=== PATIENT | female | born 1985 | race Two or more races ===

== ENCOUNTER 2016-11-21 14:53 | Emergency (ER) | payer OTHER ==
[2016-11-21 15:01] VITALS: BP 108/68; PULSE 81; TEMP 97.8; BMI 24.2
--- NOTE | 2016-11-21 16:44 | PDOC ---
History of Present Illness - General History Source: Patient Exam Limitations: No Limitations - History of Present Illness Initial Comments: 11/21/16 16:47 The patient is a 30 year old female, with a significant past medical history of hypothyroidism, who presents to the emergency department with vaginal bleeding for the past 5 days. She reports that she is having her period now but it has been much heavier than usual, going through multiple pads daily. She denies any kind of pain. She denies taking control. She reports that she has her tubes tied. She does note that usually her period is 2 weeks on and 2 weeks off but never to this intensity. The patient denies chest pain, shortness of breath, headache and dizziness. Denies fever, chills, nausea, vomit, diarrhea and constipation. Denies dysuria, frequency, urgency and hematuria. Allergies: None Past surgical history: Tubal ligation Social history: No alcohol, tobacco or drug use reported <Pancho Guan - Last Filed: 11/21/16 20:06> - General History Source: Patient Exam Limitations: No Limitations <Eddie Cobos - Last Filed: 11/21/16 20:16> - General Chief Complaint: Vaginal Bleeding Stated Complaint: VAG BLEEDING, DIZZINESS, ABD CRAMPING Time Seen by Provider: 11/21/16 16:08 Past History <Pancho Guan - Last Filed: 11/21/16 20:06> - Past Medical History Anemia: No Asthma: No Cancer: No Cardiac Disorders: No CVA: No COPD: No CHF: No Dementia: No Diabetes: No GI Disorders: No Disorders: No HTN: No Hypercholesterolemia: No Liver Disease: No Seizures: No Thyroid Disease: Yes - Reproductive History (#): 4 Para: 3 - Immunization History Immunization Up to Date: Yes - Psycho/Social/Smoking Cessation Hx Anxiety: No Suicidal Ideation: No Smoking Status: No Smoking History: Never smoked Have you smoked in the past 12 months: Yes Number of Cigarettes Smoked Daily: 0 'Breaking Loose' booklet given: 12/17/13 Hx Alcohol Use: Yes (SOCIAL) Drug/Substance Use Hx: No Substance Use Type: None Hx Substance Use Treatment: No <Eddie Cobos - Last Filed: 11/21/16 20:16> - Past Medical History Allergies/Adverse Reactions: Allergies Allergy/AdvReac Type Severity Reaction Status Date / Time shellfish derived Allergy Severe Hives Verified 11/21/16 15:01 Home Medications: Ambulatory Orders Cephalexin [Keflex] 500 mg PO BID #14 capsule 11/21/16 Ethinyl Estradiol/Drospirenone [Ocella 3 mg-0.03 mg Tablet] 1 each PO DAILY #30 tablet 11/21/16 Review of Systems - Review of Systems Able to Perform ROS?: Yes Comments:: 11/21/16 16:47 GENERAL/CONSTITUTIONAL: No fever or chills. No weakness. HEAD, EYES, EARS, NOSE AND THROAT: No change in vision. No ear pain or discharge. No sore throat. CARDIOVASCULAR: No chest pain or shortness of breath RESPIRATORY: No cough, wheezing, or hemoptysis. GASTROINTESTINAL: No nausea, vomiting, diarrhea or constipation. GENITOURINARY: +Vaginal bleeding. No dysuria, frequency, or change in urination. MUSCULOSKELETAL: No joint or muscle swelling or pain. No neck or back pain. SKIN: No rash NEUROLOGIC: No headache, vertigo, loss of consciousness, or change in strength/ sensation. ENDOCRINE: No increased thirst. No abnormal weight change HEMATOLOGIC/LYMPHATIC: No anemia, easy bleeding, or history of blood clots. ALLERGIC/IMMUNOLOGIC: No hives or skin allergy. <Pancho Guan - Last Filed: 11/21/16 20:06> *Physical Exam - Vital Signs Last Vital Signs Temp Pulse Resp BP Pulse Ox 97.8 F 81 20 108/68 98 11/21/16 14:59 11/21/16 14:59 11/21/16 14:59 11/21/16 14:59 11/21/16 14:59 - Physical Exam Comments: 11/21/16 16:47 GENERAL: Awake, alert, and fully oriented, in no acute distress HEAD: No signs of trauma, normocephalic, atraumatic EYES: PERRLA, EOMI, sclera anicteric, conjunctiva clear ENT: Auricles normal inspection, hearing grossly normal, nares patent, oropharynx clear without exudates. Moist mucosa NECK: Normal ROM, supple, no lymphadenopathy, JVD, or masses LUNGS: No distress, speaks full sentences, clear to auscultation bilaterally HEART: Regular rate and rhythm, normal S1 and S2, no murmurs, rubs or gallops, peripheral pulses normal and equal bilaterally. ABDOMEN: Soft, nontender, normoactive bowel sounds. No guarding, no rebound. No masses EXTREMITIES: Normal inspection, Normal range of motion, no edema. No clubbing or cyanosis. NEUROLOGICAL: Cranial nerves II through XII grossly intact. Normal speech, normal gait, no focal sensorimotor deficits SKIN: Warm, Dry, normal turgor, no rashes or lesions noted. PELVIC EXAM: +Blood in vaginal vault. No CMT or adnexal tenderness. Closed Ox. <Pancho Guan - Last Filed: 11/21/16 20:06> - Vital Signs Last Vital Signs Temp Pulse Resp BP Pulse Ox 97.8 F 81 20 108/68 98 11/21/16 14:59 11/21/16 14:59 11/21/16 14:59 11/21/16 14:59 11/21/16 14:59 <Eddie Cobos - Last Filed: 11/21/16 20:16> ED Treatment Course - LABORATORY CBC & Chemistry Diagram: 11/21/16 17:10 11/21/16 17:15 - RADIOLOGY Radiograph Interpretation: 11/21/16 18:32 Transvaginal ultrasound Reviewed by: Dr. Yuan Zapata Impression: No definite sonographic abnormality is identified. <Pancho Guan - Last Filed: 11/21/16 20:06> - LABORATORY CBC & Chemistry Diagram: 11/21/16 17:10 11/21/16 17:15 - RADIOLOGY Radiology Studies Ordered: Category Date Time Status TRANSVAGINAL ULTRASOUND US [US] Stat Ultrasound 11/21/16 16:22 Ordered <Eddie Cobos - Last Filed: 11/21/16 20:16> Medical Decision Making - Medical Decision Making 11/21/16 20:06 Dr. Lock was called regarding the patient at 7:38pm, 7:56pm. Dr. Lock was consulted regarding the patient at 8:06pm [phone] <Pancho Guan - Last Filed: 11/21/16 20:06> - Medical Decision Making 11/21/16 16:42 A portion of this note was written by my scribe, under my supervision. Vital Signs Temp Pulse Resp BP Pulse Ox 97.8 F 81 20 108/68 98 11/21/16 14:59 11/21/16 14:59 11/21/16 14:59 11/21/16 14:59 11/21/16 14:59 30 year old female with no past medical history, s/p tubal ligation, hx of heavy periods, presents with heavy menses. The patient reports that she is typically regular and has her periods each month. however, the patient has 2 weeks of heavy bleeding. 5 days ago, started to develop vaginal bleeding typical of her menses, but recently noted that this was particularly heavier than usual. Reports uterine cramping. Does not think she is . never went to an mosaic tile maker. Reports feeling somewhat lightheaded but denies other symptoms. Will r/o anemia 2/2 bleeding. Transfuse PRN. Will obtain a test. If test negative, will consider dysfunctional uterine bleeding or degenerating fibroids. Either way, patient should get labs and transvaginal ultrasound. 11/21/16 20:08 CBC, BMP 11/21/16 17:10 11/21/16 17:15 CMP Sodium 140 mmol/L (136-145) 11/21/16 17:15 Potassium 3.7 mmol/L (3.5-5.1) 11/21/16 17:15 Chloride 106 mmol/L (98-107) 11/21/16 17:15 Carbon Dioxide 29 mmol/L (21-32) 11/21/16 17:15 Anion Gap 5 (8-16) L 11/21/16 17:15 BUN 13 mg/dL (7-18) 11/21/16 17:15 Creatinine 0.6 mg/dL (0.55-1.02) D 11/21/16 17:15 Creat Clearance w eGFR > 60 (>60) 11/21/16 17:15 Random Glucose 86 mg/dL (74-106) 11/21/16 17:15 Calcium 8.5 mg/dL (8.5-10.1) 11/21/16 17:15 Total Bilirubin 0.3 mg/dL (0.2-1.0) 11/21/16 17:15 AST 42 U/L (15-37) H D 11/21/16 17:15 ALT 69 U/L (12-78) 11/21/16 17:15 Alkaline Phosphatase 201 U/L (45-117) H D 11/21/16 17:15 Total Protein 7.5 g/dl (6.4-8.2) 11/21/16 17:15 Albumin 3.9 g/dl (3.4-5.0) 11/21/16 17:15 Urine Test Results Urine Color Dk. red 11/21/16 17:33 Urine Appearance Clear 11/21/16 17:33 Urine pH 6.5 (5.0-8.0) 11/21/16 17:33 Ur Specific [place] 1.015 (1.001-1.035) 11/21/16 17:33 Urine Protein 2+ (NEGATIVE) H 11/21/16 17:33 Urine Glucose (UA) Negative (NEGATIVE) 11/21/16 17:33 Urine Ketones Trace (NEGATIVE) H 11/21/16 17:33 Urine Blood 3+ (NEGATIVE) H 11/21/16 17:33 Urine Nitrite Positive (NEGATIVE) 11/21/16 17:33 Urine Bilirubin Negative (NEGATIVE) 11/21/16 17:33 Ur Leukocyte Esterase 1+ (NEGATIVE) H D 11/21/16 17:33 Urine RBC Many /hpf (0-3) 11/21/16 17:33 Urine WBC 2 /hpf (3-5) 11/21/16 17:33 Urine Bacteria Rare /hpf (NONE SEEN) 11/21/16 17:33 Ultrasound reviewed. Demonstrate no acute findings. Urine is positive for nitrites and leukoesterase concerning for urinary tract infection. Willis aquatic habitat biologist reviewed. In Keflex was ordered. I suspect that the patient has dysfunctional uterine bleeding as this has been a long-standing issue with the patient. She already has tubal ligation. I discussed the case with review coordinator and elementary assistant principal injection molding machine setter Dr. Lock. He agrees with plan to initiate oral contraceptive pills and suggests Ocella. We'll give her 3 month supply that the patient follow-up with her review coordinator and elementary assistant principal. Patient verbalized understanding agrees with plan. I discussed the physical exam findings, ancillary test results and final diagnoses with the patient. I answered all of the patient's questions. The patient was satisfied with the care received and felt comfortable with the discharge plan and treatment plan. The patient will call their primary care physician within 24 hours to arrange follow-up and will return to the Emergency Department with any new, persistant or worsening symptoms. <Eddie Cobos - Last Filed: 11/21/16 20:16> *DC/Admit/Observation/Transfer - Attestations Scribe Attestion: 11/21/16 16:48 Documentation prepared by Pancho Guan, acting as medical librarian for Eddie Cobos MD. <Pancho Guan - Last Filed: 11/21/16 20:06> - Discharge Dispostion Admit: No <Eddie Cobos - Last Filed: 11/21/16 20:16> Diagnosis at time of Disposition: Dysfunctional uterine bleeding UTI (urinary tract infection) Qualifiers: Urinary tract infection type: site unspecified Hematuria presence: without hematuria Qualified Code(s): N39.0 - Urinary tract infection, site not specified - Discharge Dispostion Disposition: HOME Condition at time of disposition: Improved - Prescriptions Prescriptions: Cephalexin [Keflex] 500 mg PO BID #14 capsule Ethinyl Estradiol/Drospirenone [Ocella 3 mg-0.03 mg Tablet] 1 each PO DAILY #30 tablet - Referrals Referrals: Yuan Izquierdo MD [Primary Care Provider] - Dejuan Centeno MD [Staff Physician] - Burke Lock MD [Staff Physician] - - Patient Instructions Printed Discharge Instructions: DI for Urinary Tract Infection (UTI), DI for Abnormal Uterine Bleeding Additional Instructions: You have a copy of your results. Please start taking the control pills. Take the keflex (500 mg) every 12 hours for the next week. Follow up with your primary care physician and mosaic tile maker doctor. If you hvae uncontrollable bleeding, please return to the ER for further evaluation. Print Language: MOHAWK - Post Discharge Activity Work/School Note: Back to Work
[2016-11-21 17:23] LABS: BASOPHIL 0.5 % (0-2.0); EOSINOPHIL 0.8 % (0-4.5); MCH 26.9 pg (25.7-33.7); MCHC 33.2 g/dl (32.0-36.0); MEAN PLT VOLUME 9.6 fl (7.5-11.1); NEUTROPHILS 63.3 % (42.8-82.8); PLATELET COUNT 199 K/MM3 (134-434); RDW 15.1 % (11.6-15.6); WHITE BLOOD COUNT 8.9 K/mm3 (4.0-10.0)
[2016-11-21 17:33] LABS: INR 1.03 (0.82-1.09); PROTHROMBIN TIME (PATIENT) 11.3 SEC (9.98-11.88)
[2016-11-21 17:36] LABS: ACTIVATED PTT 29.1 SECONDS (26.9-34.4)
[2016-11-21 18:00] LABS: ALBUMIN 3.9 g/dl (3.4-5.0); ALK PHOS 201 U/L (45-117); ANION GAP 5 (8-16); BILIRUBIN,TOTAL 0.3 mg/dL (0.2-1.0); CALCIUM 8.5 mg/dL (8.5-10.1); CO2 29 mmol/L (21-32); CREATININE 0.6 mg/dL (0.55-1.02); GLUCOSE,RANDOM 86 mg/dL (74-106); SGOT/AST 42 U/L (15-37); SGPT/ALT 69 U/L (12-78); TOT PROT 7.5 g/dl (6.4-8.2)
[2016-11-21 19:07] LABS: PH,URINE 6.5 (5.0-8.0); URINE APPEARANCE CLEAR; URINE BILIRUBIN NEGATIVE (NEGATIVE); URINE COLOR DK. RED; URINE GLUCOSE (UA) NEGATIVE (NEGATIVE); URINE KETONE TRACE (NEGATIVE); URINE UROBILINOGEN 1.0 E.U/dl E.U./dl (0.2-1.0)
[2016-11-21 19:10] LABS: URINE BLOOD 3+ (NEGATIVE); URINE LEUK ESTERASE 1+ (NEGATIVE); URINE NITRITE POSITIVE (NEGATIVE); URINE PROTEIN 2+ (NEGATIVE)
[2016-11-21 19:14] LABS: URINE RBC MANY /hpf (0-3)
[2016-11-21 19:15] LABS: URINE BACTERIA RARE /hpf (NONE SEEN); URINE WBC 2 /hpf (3-5)
[2016-11-21] MEDS ORDERED: CEPHALEXIN MONOHYDRATE 500 MG CAPSULE (UD) PO ONE (19:34)
[2016-11-21] MEDS ORDERED: CEPHALEXIN MONOHYDRATE 250 MG CAPSULE (FP) ONE (19:50)
== END 2016-11-21 20:39 | disposition home or self-care (01) ==
LOC: JER 14:53
DX: N93.8 Other specified abnormal uterine and vaginal bleeding (principal); N39.0 Urinary tract infection, site not specified; E03.9 Hypothyroidism, unspecified; N93.9 Abnormal uterine and vaginal bleeding, unspecified
CPT/HCPCS: 36415; 76830-TC; 80053; 81003; 81015; 84703; 85025; 85610; 85730; 86850; 86900; 86901; 87086; 87186; 99282-25

== ENCOUNTER 2017-02-24 16:02 | Emergency (ER) | payer OTHER ==
[2017-02-24 16:13] VITALS: BP 121/74; PULSE 80; TEMP 98; BMI 24.2
[2017-02-24] MEDS ORDERED: DEXAMETHASONE SOD PHOSPHATE 10 MG/1 ML VIAL IM ONE (16:53)
[2017-02-24] MEDS ORDERED: diphenhydrAMINE HCL 25 MG CAPSULE (FP) PO ONE ×2 (16:53→16:58)
[2017-02-24] MEDS ORDERED: DEXAMETHASONE SOD PHOSPHATE 10 MG/1 ML VIAL ONE (16:58)
--- NOTE | 2017-02-24 16:59 | PDOC ---
[id number]: ALLERGIC REACTION/RASH Time Seen by Provider: 02/24/17 16:51 History Source: Patient Exam Limitations: No Limitations - History of Present Illness Initial Comments: 02/24/17 19:37 31 yr female with hives, itchy rash all over since last night at 8pm after eating tunafish. Pt states she has had no previous reactions but the food was prepared out of her home. 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 Past History - Past Medical History Allergies/Adverse Reactions: Allergies Allergy/AdvReac Type Severity Reaction Status Date / Time shellfish derived Allergy Severe Hives Verified 02/24/17 16:10 Home Medications: Ambulatory Orders Prednisone [Deltasone -] 40 mg PO DAILY #8 tablet 02/24/17 Anemia: No Asthma: No Cancer: No Cardiac Disorders: No CVA: No COPD: No CHF: No Dementia: No Diabetes: No GI Disorders: No Disorders: No HTN: No Hypercholesterolemia: No Liver Disease: No Seizures: No Thyroid Disease: Yes - Reproductive History (#): 4 Para: 3 - Immunization History Immunization Up to Date: Yes - Psycho/Social/Smoking Cessation Hx Anxiety: No Suicidal Ideation: No Smoking Status: No Smoking History: Never smoked Have you smoked in the past 12 months: Yes Number of Cigarettes Smoked Daily: 0 Information on smoking cessation initiated: No 'Breaking Loose' booklet given: 12/17/13 Hx Alcohol Use: No Drug/Substance Use Hx: No Substance Use Type: None Hx Substance Use Treatment: No Review of Systems - Review of Systems Able to Perform ROS?: Yes Is the patient limited Hungarian proficient: No Constitutional: No: Symptoms Reported HEENTM: No: Symptoms Reported Respiratory: No: Symptoms reported Cardiac (ROS): No: Symptoms Reported ABD/GI: No: Symptoms Reported : No: Symptoms Reported Musculoskeletal: No: Symptoms Reported Integumentary: Yes: Symptoms Reported, See HPI *Physical Exam - Vital Signs Last Vital Signs Temp Pulse Resp BP Pulse Ox 98 F 80 20 121/74 100 02/24/17 16:11 02/24/17 16:11 02/24/17 16:11 02/24/17 16:11 02/24/17 16:11 - Physical Exam General Appearance: Yes: Nourished, Appropriately Dressed HEENT: positive: EOMI, RANJEET, Normal ENT Inspection, TMs Normal, Pharynx Normal Neck: positive: Supple Respiratory/Chest: positive: Lungs Clear, Normal Breath Sounds Cardiovascular: positive: Regular Rhythm, Regular Rate Extremity: positive: Normal Capillary Refill, Normal Inspection, Normal Range of Motion Integumentary: positive: Hives, Rash Neurologic: positive: Fully Oriented, Alert, Normal Mood/Affect, Normal Response , Motor Strength 5/5 Medical Decision Making - Medical Decision Making 02/24/17 19:38 cc: generalised hives, red itchy rash arms, legs chest will give decadron and benadryl strict follow up with ENT vitals stable no resp distress or dif speaking neg nvd *DC/Admit/Observation/Transfer Diagnosis at time of Disposition: Localized hives Allergic reaction Qualifiers: Encounter type: initial encounter Qualified Code(s): T78.40XA - Allergy, unspecified, initial encounter - Discharge Dispostion Disposition: HOME Condition at time of disposition: Good - Prescriptions Prescriptions: Prednisone [Deltasone -] 40 mg PO DAILY #8 tablet - Referrals Referrals: López Maya MD [Primary Care Provider] - Willis Dong MD [Staff Physician] - - Patient Instructions Additional Instructions: take benadryl 50mg every 6-8hrs as needed for itching and hives benadryl can make you sleepy DO NOT DRIVE, OPERATE MACHINERY OR DRINK ALCOHOL take the prednisone as directed start tomorrow take a non drowsy antihistamine such as Claritin or Zyrtec NON DROWSY during the day and take benadryl at night time Return if any worsening symptoms cool showers to bathe follow with the morning show producer listed below for follow up if not getting any better
== END 2017-02-24 17:01 | disposition home or self-care (01) ==
LOC: JERFT 16:02
DX: L50.0 Allergic urticaria (principal); T78.1XXA Other adverse food reactions, not elsewhere classified, initial encounter; X58.XXXA Exposure to other specified factors, initial encounter
CPT/HCPCS: 99281-25

== ENCOUNTER 2017-04-14 20:55 | Emergency (ER) | payer OTHER ==
[2017-04-14 21:01] VITALS: BP 120/77; PULSE 76; TEMP 98.1; BMI 24.2
--- NOTE | 2017-04-14 22:01 | PDOC ---
History of Present Illness - General History Source: Patient Exam Limitations: No Limitations - History of Present Illness Initial Comments: 04/14/17 22:19 The patient is a 31 year old female, with significant past medical history of migraines, hypothyroidism, who presents today with a headache, nausea, 1 episode of vomiting x 2 days. The patient explains that she was in the sun all day yesterday before the headache started. She states that this migraine is similar to the migraines she has experienced in the past; however, she took Elavil, magnesium, and Imitrex with mild relief. Denies fever, chills. Denies visual changes. Allergies: none reported Surgical Hx: tubal ligation Social Hx: No tobacco use. Occasional alcohol use. PCP: Dr. Maya Neurologist: Dr. Lawrence <Brne Calderon - Last Filed: 04/14/17 22:40> <Lynda Edmondson - Last Filed: 04/16/17 16:54> - General Chief Complaint: Migraine Headache Stated Complaint: HEADACHE Time Seen by Provider: 04/14/17 21:13 Past History <Bren Calderon - Last Filed: 04/14/17 22:40> - Past Medical History Anemia: No Asthma: No Cancer: No Cardiac Disorders: No CVA: No COPD: No CHF: No Dementia: No Diabetes: No GI Disorders: No Disorders: No HTN: No Hypercholesterolemia: No Liver Disease: No Seizures: No Thyroid Disease: Yes - Reproductive History (#): 4 Para: 3 - Immunization History Immunization Up to Date: Yes - Psycho/Social/Smoking Cessation Hx Anxiety: No Suicidal Ideation: No Smoking Status: No Smoking History: Never smoked Have you smoked in the past 12 months: Yes Number of Cigarettes Smoked Daily: 0 'Breaking Loose' booklet given: 12/17/13 Hx Alcohol Use: No Drug/Substance Use Hx: No Substance Use Type: None Hx Substance Use Treatment: No <Lynda Edmondson - Last Filed: 04/16/17 16:54> - Past Medical History Allergies/Adverse Reactions: Allergies Allergy/AdvReac Type Severity Reaction Status Date / Time shellfish derived Allergy Severe Hives Verified 04/14/17 20:58 Home Medications: Ambulatory Orders Amitriptyline HCl [Elavil -] 50 mg PO DAILY 04/14/17 Magnesium Oxide [Magnesium] 250 mg PO ASDIR 04/14/17 Sumatriptan Succinate [Imitrex] 25 mg PO ASDIR PRN 04/14/17 Review of Systems - Review of Systems Able to Perform ROS?: Yes Comments:: 04/14/17 22:19 CONSTITUTIONAL: Absent: fever, no chills, no fatigue EYES: Absent: visual changes ENT: Absent: ear pain, no sore throat CARDIOVASCULAR: Absent: chest pain, no palpitations RESPIRATORY: Absent: cough, no SOB GI: Present: nausea, vomiting Absent: abdominal pain, no constipation, no diarrhea GENITOURINARY: Absent: dysuria, no frequency, no hematuria MUSCULOSKELETAL: Absent: back pain, no arthralgia, no myalgia SKIN: Absent: rash NEURO: Present: headache <Bren Calderon - Last Filed: 04/14/17 22:40> *Physical Exam - Vital Signs Last Vital Signs Temp Pulse Resp BP Pulse Ox 98.1 F 76 18 120/77 97 04/14/17 20:58 04/14/17 20:58 04/14/17 20:58 04/14/17 20:58 04/14/17 20:58 - Physical Exam Comments: 04/14/17 22:20 GENERAL: Well-appearing, well-nourished. No apparent distress. HEENT: Normocephalic, atraumatic. PERRL, EOM intact. CARDIOVASCULAR: Normal S1, S2. Regular rate and rhythm. PULMONARY: Clear to auscultation bilaterally. ABDOMEN: Soft, non-distended, non-tender. EXTREMITIES: Normal ROM in all four extremities. No gross deformities. SKIN: Warm, dry. No rash NEUROLOGICAL: No focal neurological deficits. <Bren Calderon - Last Filed: 04/14/17 22:40> - Vital Signs Last Vital Signs Temp Pulse Resp BP Pulse Ox 98.1 F 76 18 120/77 97 04/14/17 20:58 04/14/17 20:58 04/14/17 20:58 04/14/17 20:58 04/14/17 20:58 <Lynda Edmondson - Last Filed: 04/16/17 16:54> ED Treatment Course - LABORATORY CBC & Chemistry Diagram: 04/14/17 22:20 04/14/17 22:20 <Bren Calderon - Last Filed: 04/14/17 22:40> - LABORATORY CBC & Chemistry Diagram: 04/14/17 22:20 04/14/17 22:20 <Lynad Edmondson - Last Filed: 04/16/17 16:54> Medical Decision Making - Medical Decision Making 04/16/17 16:52 pt has migraine history and sees Dr Lawrence . She has no focal neuro deficits, she received reglan IV and her symptoms resolved and she requested to go home imp- migraines <Lynda Edmondson - Last Filed: 04/16/17 16:54> *DC/Admit/Observation/Transfer - Attestations Scribe Attestion: 04/14/17 22:20 Documentation prepared by MARTINA Joe, acting as product manager medical device for Lynda Edmondson MD. <Bren Calderon - Last Filed: 04/14/17 22:40> <Lynda Edmondson - Last Filed: 04/16/17 16:54> Diagnosis at time of Disposition: Migraine Qualifiers: Migraine type: unspecified Status migrainosus presence: without status migrainosus Intractability: not intractable Qualified Code(s): G43.909 - Migraine, unspecified, not intractable, without status migrainosus - Discharge Dispostion Disposition: HOME Condition at time of disposition: Stable - Referrals Referrals: López Maya MD [Primary Care Provider] - Juan Luis Lawrence MD [Staff Physician] - - Patient Instructions Printed Discharge Instructions: DI for Migraine Additional Instructions: please take your migraine medication and if you have persistent symptoms see your neurologist
[2017-04-14] MEDS ORDERED: SODIUM CHLORIDE 1,000 ML IV STA (22:02)
[2017-04-14] MEDS ORDERED: METOCLOPRAMIDE HCL INJECTION 10 MG/2 ML VIAL IVPB ONE (22:02)
[2017-04-14] MEDS ORDERED: KETOROLAC TROMETHAMINE 30 MG/1 ML VIAL IVPUSH ONE (22:03)
[2017-04-14] MEDS ORDERED: METOCLOPRAMIDE HCL INJECTION 10 MG/2 ML VIAL ONE (22:15)
[2017-04-14] MEDS ORDERED: KETOROLAC TROMETHAMINE 30 MG/1 ML VIAL ONE (22:15)
[2017-04-14 22:38] LABS: BASOPHIL 0.5 % (0-2.0); EOSINOPHIL 1.6 % (0-4.5); MCH 26.3 pg (25.7-33.7); MCHC 31.8 g/dl (32.0-36.0); MEAN CELL VOLUME 82.7 fl (80-96); MEAN PLT VOLUME 9.1 fl (7.5-11.1); NEUTROPHILS 43.2 % (42.8-82.8); PLATELET COUNT 212 K/MM3 (134-434); WHITE BLOOD COUNT 6.9 K/mm3 (4.0-10.0)
[2017-04-14 23:03] LABS: ALBUMIN 3.8 g/dl (3.4-5.0); ANION GAP 9 (8-16); CALCIUM 8.6 mg/dL (8.5-10.1); CO2 27 mmol/L (21-32); COCKROFT - GAULT 110.4405; CREATININE 0.8 mg/dL (0.55-1.02); GLUCOSE,RANDOM 76 mg/dL (74-106); SGOT/AST 21 U/L (15-37); SGPT/ALT 36 U/L (12-78)
[2017-04-14 23:05] LABS: ALK PHOS 118 U/L (45-117); BILIRUBIN,TOTAL 0.4 mg/dL (0.2-1.0); TOT PROT 7.7 g/dl (6.4-8.2)
== END 2017-04-14 23:14 | disposition home or self-care (01) ==
LOC: JER 20:55
PROC: 3E0333Z Introduction of Anti-inflammatory into Peripheral Vein, Percutaneous Approach (ICD-10-PCS; principal; 2017-04-14)
PROC: 3E033GC Introduction of Other Therapeutic Substance into Peripheral Vein, Percutaneous Approach (ICD-10-PCS; 2017-04-14)
PROC: 3E0337Z Introduction of Electrolytic and Water Balance Substance into Peripheral Vein, Percutaneous Approach (ICD-10-PCS; 2017-04-14)
DX: G43.909 Migraine, unspecified, not intractable, without status migrainosus (principal); E03.9 Hypothyroidism, unspecified
CPT/HCPCS: 36415; 80053; 85025; 96361; 96374; 96375; 99282-25

== ENCOUNTER 2017-12-10 11:26 | Emergency (ER) | payer OTHER ==
[2017-12-10 11:48] VITALS: BP 115/73; PULSE 72; TEMP 98.2; BMI 24.2
[2017-12-10] MEDS ORDERED: diphenhydrAMINE HCL 50 MG CAPSULE PO ONE (13:17)
[2017-12-10] MEDS ORDERED: DEXAMETHASONE LIQUID 0.5 MG/5 ML 240 ML BULK BOTTLE PO ONE (13:17)
[2017-12-10] MEDS ORDERED: RANITIDINE HCL 150 MG TABLET (FP) PO ONE (13:17)
--- NOTE | 2017-12-10 13:17 | PDOC ---
History of Present Illness - General Chief Complaint: Rash Stated Complaint: ALLERGIC RXN Time Seen by Provider: 12/10/17 12:43 History Source: Patient Exam Limitations: No Limitations - History of Present Illness Initial Comments: 12/10/17 13:11 CHIEF COMPLAINT: Generalized itching and hives HISTORY OF PRESENT ILLNESS: Patient is a 32-year-old female with history of thyroid disease, , thyroidectomy, migraines and hives of unknown etiology. Patient developed redness and itching generalized after she was at a alliance party and drank cranberry juice on Saturday. Took one benadryl without resolve. Still with pruritus and erythema generalized, Denies any respiratory difficulty, difficulty swallowing, chest pain or shortness of breath. Severity: Yes: mild Location: reports: generalized Respiratory Risk Factors: reports: no cause identified Modifying Factors: improves with: antihistamine Past History - Past Medical History Allergies/Adverse Reactions: Allergies Allergy/AdvReac Type Severity Reaction Status Date / Time shellfish derived Allergy Severe Hives Verified 12/10/17 11:44 Home Medications: Ambulatory Orders Amitriptyline HCl [Elavil -] 50 mg PO DAILY 04/14/17 Magnesium Oxide [Magnesium] 250 mg PO ASDIR 04/14/17 Sumatriptan Succinate [Imitrex -] 25 mg PO ASDIR PRN 04/14/17 Prednisone [Deltasone -] 40 mg PO DAILY #5 tablet 12/10/17 Ranitidine HCl [Zantac] 150 mg PO DAILY #7 tablet 12/10/17 Anemia: No Asthma: No Cancer: No Cardiac Disorders: No CVA: No COPD: No CHF: No Dementia: No Diabetes: No GI Disorders: No Disorders: No HTN: No Hypercholesterolemia: No Liver Disease: No Seizures: No Thyroid Disease: Yes - Reproductive History (#): 4 Para: 3 - Immunization History Immunization Up to Date: Yes - Suicide/Smoking/Psychosocial Hx Smoking Status: No Smoking History: Never smoked Have you smoked in the past 12 months: Yes Number of Cigarettes Smoked Daily: 0 'Breaking Loose' booklet given: 12/17/13 Hx Alcohol Use: No Drug/Substance Use Hx: No Substance Use Type: None Hx Substance Use Treatment: No Review of Systems - Review of Systems Constitutional: No: Symptoms Reported, Fever HEENTM: No: Symptoms Reported Respiratory: No: Symptoms reported, Cough, Orthopnea, Shortness of Breath, Wheezing, Productive cough Cardiac (ROS): No: Symptoms Reported ABD/GI: No: Symptoms Reported : No: Symptoms Reported Musculoskeletal: No: Symptoms Reported Integumentary: Yes: Erythema, Pruritus, Rash Neurological: No: Symptoms reported, Paresthesia, Tingling, Tremors Hematologic/Lymphatic: No: Symptoms Reported All Other Systems: Reviewed and Negative *Physical Exam - Vital Signs Last Vital Signs Temp Pulse Resp BP Pulse Ox 98.2 F 72 18 115/73 100 12/10/17 11:45 12/10/17 11:45 12/10/17 11:45 12/10/17 11:45 12/10/17 11:45 - Physical Exam General Appearance: Yes: Appropriately Dressed. No: Apparent Distress HEENT: positive: RANJEET, Normal ENT Inspection, Normal Voice, Symmetrical, TMs Normal, Pharynx Normal Neck: positive: Trachea midline, Other (no stridor). negative: Tender, Lymphadenopathy (R), Lymphadenopathy (L), Tender lateral, Tender midline Respiratory/Chest: positive: Lungs Clear, Normal Breath Sounds. negative: Respiratory Distress, Accessory Muscle Use Cardiovascular: positive: Regular Rhythm, Regular Rate Lymphatic: negative: Adenopathy Integumentary: positive: Dry, Erythema, Hives. negative: Swelling, Ecchymosis, Bruising Neurologic: positive: Alert, Normal Mood/Affect, Normal Response, Motor Strength 5/5 Medical Decision Making - Medical Decision Making 12/10/17 13:15 A/P: Patient here for evaluation of generalized pruritus and wheals. Thinks symptoms started after drinking cranberry juice we'll give Decadron and Benadryl. Follow-up with allergy testing. 12/10/17 13:17 I will refer patient to Dr. Dong, discharged on prednisone I discussed the physical exam findings, ancillary test results and final diagnoses with the patient. I answered all of the patient's questions. The patient was satisfied with the care received and felt comfortable with the discharge plan and treatment plan. The patient will dalia to arrange follow-up and will return to the Emergency Department with any new, persistent or worsening symptoms. *DC/Admit/Observation/Transfer Diagnosis at time of Disposition: Allergy Qualifiers: Encounter type: subsequent encounter Qualified Code(s): T78.40XD - Allergy, unspecified, subsequent encounter - Discharge Dispostion Disposition: HOME Condition at time of disposition: Stable Admit: No - Prescriptions Prescriptions: Prednisone [Deltasone -] 40 mg PO DAILY #5 tablet Ranitidine HCl [Zantac] 150 mg PO DAILY #7 tablet - Referrals Referrals: Yuan Izquierdo MD [Primary Care Provider] - Willis Dong MD [Staff Physician] - - Patient Instructions Printed Discharge Instructions: DI for General Allergic Reactions Additional Instructions: Please follow-up with allergy testing, call Dr. Dong to see if they perform testing Medication as prescribed - Post Discharge Activity Forms/Work/School Notes: Back to Work
[2017-12-10] MEDS ORDERED: DEXAMETHASONE SOD PHOSPHATE 10 MG/1 ML VIAL ONE (13:22)
[2017-12-10] MEDS ORDERED: diphenhydrAMINE HCL 25 MG CAPSULE (FP) PO ONE (13:22)
[2017-12-10] MEDS ORDERED: RANITIDINE HCL 150 MG TABLET (FP) ONE (13:22)
== END 2017-12-10 13:34 | disposition home or self-care (01) ==
LOC: JERFT 11:26
DX: L50.0 Allergic urticaria (principal); T78.40XA Allergy, unspecified, initial encounter
CPT/HCPCS: 99281-25

== ENCOUNTER 2018-11-19 07:17 | Emergency (ER) | payer OTHER ==
[2018-11-19 07:24] VITALS: BMI 25.8
--- NOTE | 2018-11-19 07:46 | PDOC ---
History of Present Illness - General Chief Complaint: Cold Symptoms Stated Complaint: COLD SYMPTOMS Time Seen by Provider: 11/19/18 07:41 History Source: Patient Exam Limitations: No Limitations - History of Present Illness Initial Comments: 11/19/18 07:41 CHIEF COMPLAINT: Back pain HISTORY OF PRESENT ILLNESS: This is a 32-year-old female with a history of thyroid cancer (s/p thyroidectomy), and chronic back pain on gabapentin. She presents today for evaluation of sudden onset of the left flank pain 3 days ago. The pain woke her up from sleep in the middle of the night. She has been unable to get any relief from [id number] medications since then. She denies dysuria or hematuria. She denies fevers, chills, abdominal pain, or any other symptoms. She denies lower extremity weakness/numbness and incontinence. She states that the pain is different from her chronic back pain. PCP: Dr. Izquierdo Smoking: Occasional ookah only Alcohol: Occasional Drugs: None Employed: No Living: With 4 children REVIEW OF SYSTEMS: GENERAL/CONSTITUTIONAL: No fever or chills. No weakness. No weight change. HEAD, EYES, EARS, NOSE AND THROAT: Nasal congestion. No change in vision. No ear pain or discharge. No sore throat. CARDIOVASCULAR: No chest pain or palpitations. RESPIRATORY: No cough, wheezing, or shortness of breath. GASTROINTESTINAL: No nausea, vomiting, diarrhea or constipation. GENITOURINARY: No dysuria, frequency, or change in urination. MUSCULOSKELETAL: See HPI. SKIN: No rash or easy bruising. NEUROLOGIC: No headache, vertigo, loss of consciousness, or loss of sensation. PSYCHIATRIC: No depression or anxiety. ENDOCRINE: No increased thirst. No abnormal weight change. HEMATOLOGIC/LYMPHATIC: No anemia, easy bleeding, or history of blood clots. ALLERGIC/IMMUNOLOGIC: No hives or skin allergy. No latex allergy. PHYSICAL EXAM: GENERAL: The patient is awake, alert, and fully oriented, in no acute distress. HEAD: Normal with no signs of trauma. ENT: Pupils equal, round and reactive to light, extraocular movements intact, sclera anicteric, conjunctiva clear. Neck supple. LUNGS: Clear to auscultation bilaterally. Normal excursion. No respiratory distress or use of accessory muscles. CV: RRR, S1/S2, no MRG. Cap refill < 2 sec. ABDOMEN: Soft, non-distended, non-tender. Left CVA tenderness. EXTREMITIES: Normal range of motion, no edema. NEUROLOGICAL: Normal speech, normal gait. CN II-XII grossly intact. PSYCH: Normal mood, normal affect. SKIN: Warm, dry, normal turgor, no rashes or lesions noted. Past History - Past Medical History Allergies/Adverse Reactions: Allergies Allergy/AdvReac Type Severity Reaction Status Date / Time shellfish derived Allergy Severe Hives Verified 06/26/18 23:55 Home Medications: Ambulatory Orders Ibuprofen [Motrin -] 600 mg PO QID PRN #15 tablet 11/19/18 Ibuprofen [Motrin -] 600 mg PO QID PRN #15 tablet 11/19/18 Levothyroxine Sodium [Levoxyl] 100 mcg PO DAILY 11/19/18 Pseudoephedrine HCl [Sudafed] 30 mg PO Q12H PRN #10 tablet 11/19/18 Anemia: No Asthma: No Cancer: No Cardiac Disorders: No CVA: No COPD: No CHF: No Dementia: No Diabetes: No GI Disorders: No Disorders: No HTN: No Hypercholesterolemia: No Liver Disease: No Seizures: No Thyroid Disease: Yes - Reproductive History (#): 4 Para: 3 - Immunization History Immunization Up to Date: Yes - Suicide/Smoking/Psychosocial Hx Smoking Status: No Smoking History: Current some day smoker Have you smoked in the past 12 months: Yes Number of Cigarettes Smoked Daily: 0 Information on smoking cessation initiated: No 'Breaking Loose' booklet given: 12/17/13 Hx Alcohol Use: No Drug/Substance Use Hx: No Substance Use Type: None Hx Substance Use Treatment: No *Physical Exam - Vital Signs Last Vital Signs Temp Pulse Resp BP Pulse Ox 97.8 F 71 18 123/80 100 11/19/18 07:19 11/19/18 07:19 11/19/18 07:19 11/19/18 07:19 11/19/18 07:19 Moderate Sedation - Procedure Monitoring Vital Signs: Procedure Monitoring Vital Signs Temperature 97.8 F 11/19/18 07:19 Pulse Rate 71 11/19/18 07:19 Respiratory Rate 18 11/19/18 07:19 Blood Pressure 123/80 11/19/18 07:19 O2 Sat by Pulse Oximetry (%) 100 11/19/18 07:19 ED Treatment Course - LABORATORY CBC & Chemistry Diagram: 11/19/18 07:40 11/19/18 07:40 Medical Decision Making - Medical Decision Making 11/19/18 08:48 A/P: 32-year-old female with left flank plain. No red flag symptoms/normal neurologic exam. Differential includes but is not limited to: UTI/pyelonephritis , renal calculus, musculoskeletal pain. 1. Labs including UA/culture, urine , CBC, CMP 2. CT spiral rule out renal stone 3. Toradol 30 mg IM for pain 4. Reassess 11/19/18 10:18 CT neg for nephrolithiasis; mild soft tissue stranding noted. Microscopic hematuria possibly consistent with passed stone. Pain resolved with Toradol. Will dc with followup instructions/return precautions. *DC/Admit/Observation/Transfer Diagnosis at time of Disposition: Flank pain Headache Qualifiers: Headache type: unspecified Headache chronicity pattern: acute headache Intractability: not intractable Qualified Code(s): R51 - Headache - Discharge Dispostion Disposition: HOME Condition at time of disposition: Stable Decision to Admit order: No - Prescriptions Prescriptions: Ibuprofen [Motrin -] 600 mg PO QID PRN #15 tablet PRN Reason: Pain Ibuprofen [Motrin -] 600 mg PO QID PRN #15 tablet PRN Reason: Pain Pseudoephedrine HCl [Sudafed] 30 mg PO Q12H PRN #10 tablet PRN Reason: congestion - Referrals Referrals: Yuan Izquierdo MD [Primary Care Provider] - 3 days - Patient Instructions Printed Discharge Instructions: DI for Flank Pain Additional Instructions: -Take ibuprofen as prescribed for pain and Sudafed as prescribed for congestion -Follow up with Dr. Izquierdo next week -Return for worsening pain, difficulty urinating, fever, or any other concerning symptoms - Post Discharge Activity
--- NOTE | 2018-11-19 07:47 | PDOC ---
*Physical Exam - Vital Signs Last Vital Signs Temp Pulse Resp BP Pulse Ox 97.8 F 71 18 123/80 100 11/19/18 07:19 11/19/18 07:19 11/19/18 07:19 11/19/18 07:19 11/19/18 07:19 ED Treatment Course - LABORATORY CBC & Chemistry Diagram: 11/19/18 07:40 11/19/18 07:40 Medical Decision Making - Medical Decision Making 11/19/18 07:47 Pt seen by Midlevel Provider under my direct supervision Ancillary studies reviewed I agree with plan as outlined by Midlevel Provider Laboratory Tests 11/19/18 11/19/18 11/19/18 07:40 07:40 07:40 WBC 7.2 Hgb 14.4 Hct 42.5 Plt Count 204 BUN Creatinine Urine Blood 2+ H Ur Leukocyte Esterase Negative Urine WBC (Auto) 5 Urine RBC (Auto) 3 Urine HCG, Qual Negative 11/19/18 07:40 WBC Hgb Hct Plt Count BUN 10 Creatinine 0.7 Urine Blood Ur Leukocyte Esterase Urine WBC (Auto) Urine RBC (Auto) Urine HCG, Qual CT demonstrates : no hydronephrosis, no nephrolithiasis, mils usbcutaneous fat stranding Pt has improved History, CT and current exam consistent with passed kidney stone 11/19/18 10:37 *DC/Admit/Observation/Transfer Diagnosis at time of Disposition: Headache, Flank pain - Discharge Dispostion Disposition: HOME Condition at time of disposition: Stable - Prescriptions Prescriptions: Ibuprofen [Motrin -] 600 mg PO QID PRN #15 tablet PRN Reason: Pain Ibuprofen [Motrin -] 600 mg PO QID PRN #15 tablet PRN Reason: Pain Pseudoephedrine HCl [Sudafed] 30 mg PO Q12H PRN #10 tablet PRN Reason: congestion - Referrals Referrals: Yuan Izquierdo MD [Primary Care Provider] - 3 days - Patient Instructions Printed Discharge Instructions: DI for Flank Pain Additional Instructions: -Take ibuprofen as prescribed for pain and Sudafed as prescribed for congestion -Follow up with Dr. Izquierdo next week -Return for worsening pain, difficulty urinating, fever, or any other concerning symptoms - Post Discharge Activity
[2018-11-19] MEDS ORDERED: KETOROLAC TROMETHAMINE 30 MG/1 ML VIAL IM ONE (07:59)
[2018-11-19 08:13] LABS: BASO % 0.9 % (0-2.0); EOS % 2.1 % (0-4.5); HEMATOCRIT 42.5 % (32.4-45.2); HEMOGLOBIN 14.4 GM/dL (10.7-15.3); LYMPH % 38.7 % (8-40); MCH 29.2 pg (25.7-33.7); MCHC 33.8 g/dl (32.0-36.0); MEAN CELL VOLUME 86.2 fl (80-96); MEAN PLT VOLUME 9.3 fl (7.5-11.1); MONO % 6.5 % (3.8-10.2); NEUT % 51.8 % (42.8-82.8); PLATELET COUNT 204 K/MM3 (134-434); RBC 4.93 M/mm3 (3.60-5.2); RDW 13.3 % (11.6-15.6); WHITE BLOOD COUNT 7.2 K/mm3 (4.0-10.0)
[2018-11-19 08:36] LABS: URINE APPEARANCE CLEAR; URINE BILIRUBIN NEGATIVE (<2.0 mg/dL); URINE COLOR YELLOW; URINE GLUCOSE (UA) NEGATIVE (NEGATIVE); URINE KETONE NEGATIVE (NEGATIVE); URINE LEUK ESTERASE NEGATIVE (NEGATIVE); URINE NITRITE NEGATIVE (NEGATIVE); URINE PROTEIN NEGATIVE (NEGATIVE); URINE UROBILINOGEN NEGATIVE mg/dL (0.2-1.0)
[2018-11-19] MEDS ORDERED: KETOROLAC TROMETHAMINE 30 MG/1 ML VIAL ONE (08:48)
[2018-11-19 08:50] LABS: ALBUMIN 4.1 g/dl (3.4-5.0); ALK PHOS 106 U/L (45-117); ANION GAP 5 MMOL/L (8-16); BILIRUBIN,TOTAL 0.3 mg/dL (0.2-1); BLOOD UREA NITROGEN 10 mg/dL (7-18); CALCIUM 8.6 mg/dL (8.5-10.1); CHLORIDE 107 mmol/L (98-107); CO2 27 mmol/L (21-32); CREATININE 0.7 mg/dL (0.55-1.3); GLUCOSE,RANDOM 79 mg/dL (74-106); POTASSIUM 3.8 mmol/L (3.5-5.1); SGOT/AST 29 U/L (15-37); SGPT/ALT 42 U/L (13-61); SODIUM 139 mmol/L (136-145)
[2018-11-19 09:00] LABS: EPI CELLS FEW /HPF (FEW); URINE MUCUS RARE
[2018-11-19 11:17] VITALS: BP 122/66; PULSE 72; TEMP 98
== END 2018-11-19 11:15 | disposition home or self-care (01) ==
LOC: JER 07:17
PROC: 3E0233Z Introduction of Anti-inflammatory into Muscle, Percutaneous Approach (ICD-10-PCS; principal; 2018-11-19)
DX: R51 Headache (principal); R10.32 Left lower quadrant pain; Z87.891 Personal history of nicotine dependence
CPT/HCPCS: 36415; 74176; 80053; 81003; 81015; 84703; 85025; 87086; 96372; 99284-25

== ENCOUNTER 2019-03-15 13:17 | Emergency (ER) | payer OTHER ==
[2019-03-15 13:22] VITALS: BP 132/82; PULSE 87; TEMP 98.2; BMI 25.8
[2019-03-15] MEDS ORDERED: METOCLOPRAMIDE HCL INJECTION 10 MG/2 ML VIAL IVPB ONE (13:58)
[2019-03-15] MEDS ORDERED: IBUPROFEN 400 MG TABLET (FP) PO ONE ×2 (13:58→14:33)
[2019-03-15] MEDS ORDERED: METOCLOPRAMIDE HCL INJECTION 10 MG/2 ML VIAL ONE (14:17)
--- NOTE | 2019-03-15 14:27 | PDOC ---
History of Present Illness - General Chief Complaint: Headache Stated Complaint: HEADACHE Time Seen by Provider: 03/15/19 13:38 History Source: Patient - History of Present Illness Timing/Duration: reports: other Severity: Yes: severe Past History - Past Medical History Allergies/Adverse Reactions: Allergies Allergy/AdvReac Type Severity Reaction Status Date / Time shellfish derived Allergy Severe Hives Verified 06/26/18 23:55 Home Medications: Ambulatory Orders Levothyroxine Sodium [Levoxyl] 100 mcg PO DAILY 11/19/18 Ibuprofen [Motrin -] 800 mg PO Q6H #30 tablet 03/15/19 Anemia: No Asthma: No Cancer: No Cardiac Disorders: No CVA: No COPD: No CHF: No Dementia: No Diabetes: No GI Disorders: No Disorders: No HTN: No Hypercholesterolemia: No Liver Disease: No Seizures: No Thyroid Disease: Yes - Reproductive History (#): 4 Para: 3 - Immunization History Immunization Up to Date: Yes - Suicide/Smoking/Psychosocial Hx Smoking Status: No Smoking History: Never smoked Have you smoked in the past 12 months: Yes Number of Cigarettes Smoked Daily: 0 'Breaking Loose' booklet given: 12/17/13 Hx Alcohol Use: No Drug/Substance Use Hx: No Substance Use Type: None Hx Substance Use Treatment: No Review of Systems - Review of Systems Constitutional: No: Chills, Fever HEENTM: No: Eye Pain, Blurred Vision ABD/GI: No: Nausea, Vomiting Neurological: Yes: Headache. No: Dizziness *Physical Exam - Vital Signs Last Vital Signs Temp Pulse Resp BP Pulse Ox 98.2 F 87 18 132/82 100 03/15/19 13:18 03/15/19 13:18 03/15/19 13:18 03/15/19 13:18 03/15/19 13:18 - Physical Exam General Appearance: Yes: Appropriately Dressed. No: Apparent Distress HEENT: positive: Normal Voice. negative: Scleral Icterus (R), Scleral Icterus ( L) Neck: positive: Supple Respiratory/Chest: negative: Respiratory Distress Neurologic: positive: tile decorator II-XII NML intact, Fully Oriented, Alert, Normal Mood/ Affect, Motor Strength 03/08 ED Treatment Course - ADDITIONAL ORDERS Additional order review: Laboratory Results 03/15/19 14:02 Urine HCG, Qual Negative - Medications Given in the ED: ED Medications Discontinued Medications Generic Name Dose Route Start Last Admin Trade Name Rodolfo PRN Reason Stop Dose Admin Metoclopramide HCl 10 mg 03/15/19 13:58 03/15/19 14:23 Reglan Injection - IVPB 03/15/19 13:59 10 mg ONCE ONE Administration Medical Decision Making - Medical Decision Making 03/15/19 14:24 33-year-old female endorses history of migraine headaches, has been seen by neurology with negative neuroimaging in past, on meds but states she continues to get almost daily headache and here with her usual headache that started 3 days ago, located to left sikhism, throbbing in nature, 8/10 and intermittent. No dizziness, visual changes, nausea, vomiting or aura. States next neuro follow-up is in 2 weeks see exam WILSON Similar to migraines per pt Neg neuroimaging in past On meds w/ no relief No red flags today Upreg neg -pain control/reassess 03/15/19 14:41 Pain improved w/ meds. Will dc to take law or Excedrin as needed until upcoming neuro appt *DC/Admit/Observation/Transfer Diagnosis at time of Disposition: Headache Qualifiers: Headache type: unspecified Headache chronicity pattern: unspecified pattern Intractability: not intractable Qualified Code(s): R51 - Headache - Discharge Dispostion Disposition: HOME Condition at time of disposition: Improved - Prescriptions Prescriptions: Ibuprofen [Motrin -] 800 mg PO Q6H #30 tablet - Referrals Referrals: Yuan Izquierdo MD [Primary Care Provider] - - Patient Instructions Printed Discharge Instructions: Migraine -- Adult Additional Instructions: Take 800 of Motrin every 6 hours as needed for headache. Be certain to eat something before you take meds. Please continue to follow-up with your neurologist - Post Discharge Activity
== END 2019-03-15 14:53 | disposition home or self-care (01) ==
LOC: JER 13:17 → JERFT 13:17
PROC: 3E033GC Introduction of Other Therapeutic Substance into Peripheral Vein, Percutaneous Approach (ICD-10-PCS; principal; 2019-03-15)
DX: R51 Headache (principal); Z87.891 Personal history of nicotine dependence; E07.9 Disorder of thyroid, unspecified
CPT/HCPCS: 84703; 99281-25

== ENCOUNTER 2019-04-08 16:49 | Emergency (ER) | payer OTHER | END 2019-04-08 20:30 | disposition home or self-care (01) | LOC: JER 16:49 ==

== ENCOUNTER 2019-07-07 05:39 | Inpatient (IN) | payer OTHER ==
[2019-07-02 15:41] VITALS: BMI 24.2
[2019-07-07] MEDS ORDERED: MIDAZOLAM HCL 2 MG/2 ML SINGLE DOSE VIAL ONE ×2 (07:19)
[2019-07-07] MEDS ORDERED: BUPIVACAINE HCL/PF 0.5% (5 MG/ML) 30 ML VIAL IJ ONE (07:19)
[2019-07-07] MEDS ORDERED: PROPOFOL 20 ML ONE ×2 (07:30)
[2019-07-07] MEDS ORDERED: fentaNYL CITRATE 250 MCG/5 ML VIAL ONE (07:30)
[2019-07-07] MEDS ORDERED: ROCURONIUM BROMIDE 50 MG/5 ML SYRINGE ONE ×2 (07:30→08:15)
--- NOTE | 2019-07-07 07:45 | HP ---
Admitting History and Physical - Admission Chief Complaint: Prolonged and heavy menses History of Present Illness: 33 yo Para 4, with abnormal uterine bleeding, is pre op for hysterectomy. History Source: Patient Limitations to Obtaining History: No Limitations - Past Medical History ...LMP: 12/14/13 ...LMP Comment: december ...: No ...Para: 4 - Past Surgical History Additional Past Surgical History: Partial thyroidectomy - Smoking History Smoking history: Never smoked Have you smoked in the past 12 months: No Aproximately how many cigarettes per day: 0 - Alcohol/Substance Use Hx Alcohol Use: Yes (occas) - Social History History of Recent Travel: No Home Medications - Allergies Allergies/Adverse Reactions: Allergies Allergy/AdvReac Type Severity Reaction Status Date / Time shellfish derived Allergy Severe Hives Verified 07/02/19 15:44 No Known Drug Allergies Allergy Verified 07/02/19 15:44 - Home Medications Home Medications: Ambulatory Orders Levothyroxine Sodium [Levoxyl] 100 mcg PO DAILY 11/19/18 Cholecalciferol (Vitamin D3) [Vitamin D3] 1,000 unit PO DAILY 07/02/19 Iron 18 mg PO DAILY 07/02/19 Family Disease History - Family Disease History Family History: Unremarkable Review of Systems - Review of Systems Constitutional: reports: No Symptoms Eyes: reports: No Symptoms HENT: reports: No Symptoms Neck: reports: No Symptoms Cardiovascular: reports: No Symptoms Respiratory: reports: No Symptoms Gastrointestinal: reports: No Symptoms Genitourinary: reports: No Symptoms Breasts: reports: No Symptoms Reported Musculoskeletal: reports: No Symptoms Integumentary: reports: No Symptoms Neurological: reports: No Symptoms Endocrine: reports: No Symptoms Hematology/Lymphatic: reports: No Symptoms Psychiatric: reports: No Symptoms Pain Intensity: 0 Physical Examination Vital Signs: Vital Signs Temperature 98.4 F 07/07/19 06:36 Pulse Rate 74 07/07/19 06:36 Respiratory Rate 20 07/07/19 06:36 Blood Pressure 129/79 07/07/19 06:36 O2 Sat by Pulse Oximetry (%) 99 07/07/19 06:37 Constitutional: Yes: Well Nourished Eyes: Yes: Conjunctiva Clear HENT: Yes: Atraumatic Neck: Yes: Supple Cardiovascular: Yes: Regular Rate and Rhythm Respiratory: Yes: Regular Gastrointestinal: Yes: Normal Bowel Sounds ...Rectal Exam: Yes: WNL Renal/: Yes: WNL Breast(s): Yes: WNL Musculoskeletal: Yes: WNL Extremities: Yes: WNL Integumentary: Yes: WNL Neurological: Yes: Alert, Oriented ...Motor Strength: WNL Psychiatric: Yes: Alert, Oriented Assessment/Plan Abnormal uterine bleeding Pre op for abdominal hysterectomy Consent signed Anesthesia to see patient
[2019-07-07] MEDS ORDERED: LIDOCAINE HCL 2% JELLY (5 ML/TUBE) ONE (07:48)
[2019-07-07] MEDS ORDERED: DESFLURANE GAS 240 ML BOTTLE IH ONE (07:48)
[2019-07-07] MEDS ORDERED: ONDANSETRON 4 MG/2 ML VIAL IVPUSH PRN (08:05)
[2019-07-07] MEDS ORDERED: ceFAZolin SODIUM 1 GM VIAL IVPB ONE (08:05)
[2019-07-07] MEDS ORDERED: ceFAZolin SODIUM 1 GM VIAL ONE (08:08)
[2019-07-07] MEDS ORDERED: SODIUM CHLORIDE 0.9% P/F 10 ML VIAL IJ ONE (08:08)
[2019-07-07] MEDS ORDERED: LACTATED RINGERS SOLUTION 1,000 ML IV SCH (08:15)
[2019-07-07] MEDS ORDERED: GLYCOPYRROLATE 0.2 MG/1 ML VIAL ONE (08:22)
[2019-07-07] MEDS ORDERED: PHENYLEPHRINE HCL 10 MG/1 ML SINGLE DOSE VIAL ONE (08:22)
[2019-07-07] MEDS ORDERED: NEOSTIGMINE METHYLSULFATE 0.5 MG/ML - 10 ML MDV ONE (08:23)
[2019-07-07] MEDS ORDERED: BENZOIN TINCTURE SWABSTICK TP ONE (09:19)
--- NOTE | 2019-07-07 09:31 | OP ---
Operative Note - Note: Operative Date: 07/07/19 Pre-Operative Diagnosis: Menorrhagia Operation: Abdominal hysterectomy / Bilateral salpingectomy Findings: Normal pelvis Post-Operative Diagnosis: Same as Pre-op Surgeon: Kendra Smart Field Advisor: Franco Govea Anesthesia: General Specimens Removed: Uterus / Cervix / Fallopian tubes Estimated Blood Loss (mls): 150
[2019-07-07] MEDS ORDERED: ACETAMINOPHEN INJECTION 100 ML IVPB ONE (09:39)
[2019-07-07] MEDS ORDERED: CEFAZOLIN 1 GM/D5W 1 GM/50 ML BAG IVPB SCH (10:00)
--- NOTE | 2019-07-07 10:02 | PN ---
Progress Note (short form) - Note Progress Note: I assisted Dr. MOORE at [facility], for the entirety of the case.
[2019-07-07] MEDS ORDERED: ACETAMINOPHEN 1000 MG/100 ML VIAL (NON FORMULARY) IVPB ONE (11:00)
[2019-07-07] MEDS: DEXTROSE 5%-LACTATED RINGERS 1,000 ML IV SCH ×2 (11:30→20:39)
[2019-07-07] MEDS: IBUPROFEN 800 MG/8 ML IJ IVPB PRN ×2 (13:01→20:38)
[2019-07-07] MEDS: CEFAZOLIN 1 GM/D5W 1 GM/50 ML BAG IVPB SCH (16:30)
[2019-07-07] MEDS: ACETAMINOPHEN 325 MG TABLET (FP) PO PRN (18:44)
[2019-07-07] MEDS: SIMETHICONE 80 MG TAB.CHEW (FP) PO PRN (18:44)
[2019-07-07] MEDS: oxyCODONE HCL 5 MG TABLET PO PRN (18:45)
[2019-07-08] MEDS: CEFAZOLIN 1 GM/D5W 1 GM/50 ML BAG IVPB SCH (00:30)
[2019-07-08] MEDS: SIMETHICONE 80 MG TAB.CHEW (FP) PO PRN ×4 (00:31→17:18)
[2019-07-08] MEDS: oxyCODONE HCL 5 MG TABLET PO PRN ×4 (00:31→17:18)
[2019-07-08] MEDS: ACETAMINOPHEN 325 MG TABLET (FP) PO PRN ×3 (00:31→16:32)
[2019-07-08] MEDS: IBUPROFEN 800 MG/8 ML IJ IVPB PRN (04:25)
[2019-07-08] MEDS: DEXTROSE 5%-LACTATED RINGERS 1,000 ML IV SCH ×2 (04:26→16:09)
--- NOTE | 2019-07-08 07:19 | PN ---
Progress Note, Physician Chief Complaint: Post op pain History of Present Illness: 33 yo with h/o menorrhagia and thyroid disorder is status post abdominal hysterectomy. She's seen and evaluated, she c/o incision pain. - Current Medication List Current Medications: Active Medications Acetaminophen (Tylenol -) 650 mg PO Q4H PRN PRN Reason: PAIN LEVEL 4-6 Last Admin: 07/08/19 00:31 Dose: 650 mg Dextrose/Lactated Ringer's (D5-Lr -) 1,000 mls @ 125 mls/hr IV ASDIR JENN Last Admin: 07/08/19 04:26 Dose: 125 mls/hr Ibuprofen (Motrin -) 600 mg PO Q4H PRN PRN Reason: FEVER Ondansetron HCl (Zofran Injection) 4 mg IVPUSH Q6H PRN PRN Reason: NAUSEA AND/OR VOMITING Oxycodone HCl (Roxicodone -) 10 mg PO Q4H PRN PRN Reason: PAIN LEVEL 4 - 6 Stop: 07/09/19 07:10 Simethicone (Mylicon -) 80 mg PO Q4H PRN PRN Reason: GAS Last Admin: 07/08/19 00:31 Dose: 80 mg - Objective Vital Signs: Vital Signs Temperature 98.9 F 07/08/19 02:00 Pulse Rate 57 L 07/08/19 06:00 Respiratory Rate 18 07/08/19 06:00 Blood Pressure 118/62 07/08/19 06:00 O2 Sat by Pulse Oximetry (%) 100 07/07/19 12:00 Constitutional: Yes: Well Nourished Eyes: Yes: Conjunctiva Clear HENT: Yes: Atraumatic Neck: Yes: Supple Cardiovascular: Yes: Regular Rate and Rhythm Respiratory: Yes: Regular Gastrointestinal: Yes: Normal Bowel Sounds Genitourinary: Yes: Campos Present Breast(s): Yes: WNL Musculoskeletal: Yes: WNL Extremities: No: Calf Tenderness Integumentary: Yes: WNL Wound/Incision: Yes: Dressing Dry and Intact Neurological: Yes: Alert, Oriented ...Motor Strength: WNL Psychiatric: Yes: Alert, Oriented Problem List - Problems (1) Status post abdominal hysterectomy Code(s): Z90.710 - ACQUIRED ABSENCE OF BOTH CERVIX AND UTERUS Assessment/Plan Status post abdominal hysterectomy / Bilateral salpingectomy Ambulation Analgesia as needed Regular diet D/C campos catheter Continue post op care
[2019-07-08 08:27] LABS: BASO % 0.2 % (0-2.0); EOS % 0.2 % (0-4.5); HEMATOCRIT 28.1 % (32.4-45.2); HEMOGLOBIN 9.1 GM/dL (10.7-15.3); LYMPH % 31.6 % (8-40); MCHC 32.3 g/dl (32.0-36.0); MEAN CELL VOLUME 74.4 fl (80-96); MEAN PLT VOLUME 9.1 fl (7.5-11.1); MONO % 5.8 % (3.8-10.2); NEUT % 62.2 % (42.8-82.8); PLATELET COUNT 154 K/MM3 (134-434); RBC 3.77 M/mm3 (3.60-5.2); RDW 15.9 % (11.6-15.6); WHITE BLOOD COUNT 9.5 K/mm3 (4.0-10.0)
[2019-07-08 08:37] LABS: BLOOD UREA NITROGEN 6.8 mg/dL (7-18); CALCIUM 8.4 mg/dL (8.5-10.1); CREATININE 0.7 mg/dL (0.55-1.3); POTASSIUM 3.8 mmol/L (3.5-5.1)
[2019-07-08] MEDS: IBUPROFEN 600 MG TABLET (FP) PO PRN ×3 (08:51→17:19)
--- NOTE | 2019-07-09 04:02 | PN ---
Progress Note, Physician Chief Complaint: Pt seen/evaluated and doing well. No complaints. States no pain. Tolerating diet, ambulating, voiding, passing flatus. No other complaints. - Current Medication List Current Medications: Active Medications Acetaminophen (Tylenol -) 650 mg PO Q4H PRN PRN Reason: PAIN LEVEL 4-6 Last Admin: 07/08/19 16:32 Dose: 650 mg Dextrose/Lactated Ringer's (D5-Lr -) 1,000 mls @ 125 mls/hr IV ASDIR JENN Last Admin: 07/08/19 16:09 Dose: Not Given Ibuprofen (Motrin -) 600 mg PO Q4H PRN PRN Reason: FEVER Last Admin: 07/08/19 17:19 Dose: 600 mg Ondansetron HCl (Zofran Injection) 4 mg IVPUSH Q6H PRN PRN Reason: NAUSEA AND/OR VOMITING Oxycodone HCl (Roxicodone -) 10 mg PO Q4H PRN PRN Reason: PAIN LEVEL 4 - 6 Stop: 07/09/19 07:10 Last Admin: 07/08/19 17:18 Dose: 10 mg Simethicone (Mylicon -) 80 mg PO Q4H PRN PRN Reason: GAS Last Admin: 07/08/19 17:18 Dose: 80 mg - Objective Vital Signs: Vital Signs Temperature 98.3 F 07/08/19 20:50 Pulse Rate 74 07/08/19 20:50 Respiratory Rate 20 07/08/19 20:50 Blood Pressure 103/57 L 07/08/19 20:50 O2 Sat by Pulse Oximetry (%) 100 07/07/19 12:00 Constitutional: Yes: Well Nourished, No Distress, Calm Eyes: Yes: EOM Intact HENT: Yes: Atraumatic, Normocephalic Neck: Yes: Supple Cardiovascular: Yes: Regular Rate and Rhythm Gastrointestinal: Yes: Soft, Tenderness (appropriate post surgical tenderness) Extremities: Yes: WNL Wound/Incision: Yes: Dressing Dry and Intact Neurological: Yes: Alert, Oriented Psychiatric: Yes: Alert, Oriented Labs: CBC, BMP 07/08/19 07:55 07/08/19 07:55 Problem List - Problems (1) Status post abdominal hysterectomy Code(s): Z90.710 - ACQUIRED ABSENCE OF BOTH CERVIX AND UTERUS (2) Anemia Code(s): D64.9 - ANEMIA, UNSPECIFIED Assessment/Plan regular diet PO pain meds ambulation likely discharge home later today once bandage removed
--- NOTE | 2019-07-09 09:21 | DS ---
Physical Examination Vital Signs: Vital Signs Temperature 98.3 F 07/08/19 20:50 Pulse Rate 74 07/08/19 20:50 Respiratory Rate 20 07/08/19 20:50 Blood Pressure 103/57 L 07/08/19 20:50 O2 Sat by Pulse Oximetry (%) 100 07/07/19 12:00 Constitutional: No: No Distress Eyes: Yes: Conjunctiva Clear HENT: Yes: Atraumatic Neck: Yes: Supple Cardiovascular: Yes: Regular Rate and Rhythm Respiratory: Yes: Regular Gastrointestinal: Yes: Normal Bowel Sounds Breast(s): Yes: WNL Extremities: Yes: WNL Wound/Incision: Yes: Well Approximated, Dressing Removed Neurological: Yes: Alert, Oriented ...Motor Strength: WNL Psychiatric: Yes: Alert, Oriented Labs: CBC, BMP 07/08/19 07:55 07/08/19 07:55 Discharge Summary Reason For Visit: MENORHAGIA Current Active Problems Anemia (Acute) Status post abdominal hysterectomy (Acute) Procedures: Principal: Abdominal hysterectomy / Bilateral salpingectomy Hospital Course: Routine post op care No blood transfusion required. Condition: Good - Instructions Diet, Activity, Other Instructions: Regular diet No driving, no lifting x 3 weeks. F/U with MD in 2 weeks - Home Medications Comprehensive Discharge Medication List: Ambulatory Orders Levothyroxine Sodium [Levoxyl] 100 mcg PO DAILY 11/19/18 Cholecalciferol (Vitamin D3) [Vitamin D3] 1,000 unit PO DAILY 07/02/19 Iron 18 mg PO DAILY 07/02/19
[2019-07-09] MEDS: IBUPROFEN 600 MG TABLET (FP) PO PRN (09:32)
[2019-07-09] MEDS: SIMETHICONE 80 MG TAB.CHEW (FP) PO PRN (09:32)
[2019-07-09] MEDS ORDERED: oxyCODONE HCL 5 MG TABLET PO ONE (10:00)
--- NOTE | 2019-07-09 10:06 | OP ---
DATE OF OPERATION: 07/07/2019 PREOPERATIVE DIAGNOSIS: Menorrhagia. POSTOPERATIVE DIAGNOSIS: Menorrhagia. PROCEDURE: Abdominal hysterectomy and bilateral salpingectomy. SURGEON: Kendra Smart MD GASKET MAKER: Franco Govea MD ANESTHESIA: General. COMPLICATIONS: None. ESTIMATED BLOOD LOSS: 150 mL. DESCRIPTION OF PROCEDURE: Patient was taken to the operating room where general anesthesia was administered. Patient was then prepped and draped in proper sterile fashion. A Pfannenstiel skin incision was made approximately 2 cm above the pubic symphysis and extended sharply to the rectus fascia. The fascia was then incised bilaterally with the Bovie cautery, and the muscle of the anterior abdominal wall was in the midline using the Bovie cautery. The peritoneum was then grasped between 2 pickups, elevated, and entered sharply with the Metzenbaum scissors. The pelvis was examined, and a normal pelvis was found. The bowel was packed with moist laparotomy sponges. Two pean clamps were placed on the cornua and used for retraction. The round ligaments on both sides were clamped using the LigaSure device, burned, and cut. The anterior leaf of the broad ligament was incised along the bladder reflection to the midline from both sides. The bladder was then gently dissected off the lower uterine segment and the cervix with a sponge stick. The infundibulopelvic ligaments on both sides were then clamped using the LigaSure device, burned, and cut. Hemostasis was visualized. Both tubes were then grasped with Devers, clamped, burned, and cut using the LigaSure device. The uterine arteries were skeletonized bilaterally, clamped with the LigaSure device, burned , and cut. Again, hemostasis was assured. The uterosacral ligaments were clamped on both sides with the LigaSure device, burned, and cut in a similar fashion. The cervix and uterus were amputated with the cautery and the Misael scissors. The vaginal cuff angles were closed with [id number] stitches of 0 Vicryl and were transfixed to the ipsilateral cardinal and uterosacral ligaments. The remainder of the vaginal cuff was closed with a series of interrupted 0 Vicryl [id number] sutures. Hemostasis was assured. The pelvis was then completely irrigated with warmed normal saline. All laparotomy sponges and instruments were removed from the abdomen. The fascia was closed with running 0 Vicryl, and hemostasis was assured. The skin was closed in subcuticular fashion using 3-0 Vicryl. Sponge, lap, needle, and instrument counts were correct x2. The patient was taken to PACU awake and in stable condition. Shady [id number] MTDD
[2019-07-09 10:37] VITALS: BP 108/71; PULSE 81; TEMP 98.7
--- NOTE | 2019-07-13 14:52 | PATH ---
Surgical Pathology Report Patient Name: KECIA LOREDO [facility]. Rec. #: [id number] /Age/Gender: 1985 (Age: 33) / F Account: [id number] Location: [facility] OBS/FOUNTAIN CLERK Taken: 07/07/2019 Received: 07/07/2019 Reported: 07/13/2019 Physicians: Kendra Smart M.D. Specimen(s) Received UTERUS AND CERVIX & BILATERIAL FALLOPIAN TUBES Clinical History Menorrhagia Final Diagnosis UTERUS, CERVIX AND BILATERAL FALLOPIAN TUBES, TOTAL HYSTERECTOMY AND BILATERAL SALPINGO-OOPHORECTOMY: UTERUS (WEIGHT: 102 G) SHOWING INACTIVE ENDOMETRIUM. CERVIX AND BILATERAL FALLOPIAN TUBES WITH NO PATHOLOGIC FINDINGS. Electronically Signed Yesica Marie M.D. Gross Description Received in formalin, labeled "bilateral fallopian tubes, uterus and cervix" is a 102 g uterus with attached cervix measuring 8.5 cm from uterine dome to cervical os, 5.5 cm from cornu to cornu, and 2.3 cm anteroposteriorly. Also received are two portions of purple jones fallopian tubes with fimbriae, measuring 5 cm and 5.5 cm in greatest dimension, and show pinpoint lumens. Upon opening the uterus, the 4.3 x 1.0 cm endometrial cavity is lined by pink jones endometrium with a thickness of up to 0.2 cm. The 2.8 x 0.6 cm endocervical canal shows pink-jones, mucoid endocervical mucosa. The myometrium has a thickness of up to 2 cm. Program Professional sections are submitted in eight cassettes as follows: 1-endomyometrium (endometrium entirely submitted); 2-ectoendocervix; 3-one fallopian tube;4-other fallopian tube. AE/07/08/2019 ebram/07/08/2019
== END 2019-07-09 13:30 | disposition home or self-care (01) | DRG 743 ==
LOC: JSAMEDAYSX 05:39 → J3W 11:58
PROVIDERS: ADMIT Obstetrics & Gynecology; ATTEND Obstetrics & Gynecology
PROC: 0UT70ZZ Resection of Bilateral Fallopian Tubes, Open Approach (ICD-10-PCS; 2019-07-07)
PROC: 0UT90ZZ Resection of Uterus, Open Approach (ICD-10-PCS; principal; 2019-07-07 07:30)
DX: N92.0 Excessive and frequent menstruation with regular cycle (principal); N93.8 Other specified abnormal uterine and vaginal bleeding; D64.9 Anemia, unspecified; D50.0 Iron deficiency anemia secondary to blood loss (chronic); N84.0 Polyp of corpus uteri; G60.9 Hereditary and idiopathic neuropathy, unspecified; G43.909 Migraine, unspecified, not intractable, without status migrainosus
CPT/HCPCS: 36415; 80048; 84703; 85025; 86850; 86900; 86901; 88307-TC; 94760; J0131

== ENCOUNTER 2019-09-01 17:20 | Emergency (ER) | payer OTHER ==
[2019-09-01 17:26] VITALS: BP 128/69; PULSE 90; TEMP 98; BMI 24.2
--- NOTE | 2019-09-01 17:29 | PDOC ---
Rapid Medical Evaluation Chief Complaint: Headache Time Seen by Provider: 09/01/19 17:25 Medical Evaluation: Allergies Allergy/AdvReac Type Severity Reaction Status Date / Time shellfish derived Allergy Severe Hives Verified 09/01/19 17:26 No Known Drug Allergies Allergy Verified 09/01/19 17:26 Vital Signs Temp Pulse Resp BP Pulse Ox 98 F 90 18 128/69 98 09/01/19 17:23 09/01/19 17:23 09/01/19 17:23 09/01/19 17:23 09/01/19 17:23 09/01/19 17:28 I have performed a brief in-person evaluation of this patient. The patient presents with a chief complaint of:WILSON Pertinent physical exam findings:well gina and stable I have ordered the following:upreg The patient will proceed to the ED for further evaluation. Discharge Disposition - Diagnosis Headache Qualifiers: Headache type: unspecified Headache chronicity pattern: acute headache Intractability: not intractable Qualified Code(s): R51 - Headache - Referrals - Patient Instructions - Post Discharge Activity
[2019-09-01] MEDS ORDERED: KETOROLAC TROMETHAMINE 30 MG/1 ML VIAL IVPUSH ONE (18:07)
[2019-09-01] MEDS ORDERED: METOCLOPRAMIDE HCL INJECTION 10 MG/2 ML VIAL IVPUSH ONE (18:07)
[2019-09-01] MEDS ORDERED: SODIUM CHLORIDE 0.9% 500 ML INFUS.BAG IV ONE (18:08)
[2019-09-01] MEDS ORDERED: ACETAMINOPHEN 1000 MG/100 ML VIAL (NON FORMULARY) IVPB ONE (18:08)
--- NOTE | 2019-09-01 18:10 | PDOC ---
History of Present Illness - General Chief Complaint: Headache Stated Complaint: HEADACHE Time Seen by Provider: 09/01/19 17:25 - History of Present Illness Initial Comments: 09/01/19 18:09 33-year-old female with a past medical history of chronic migraines presents for evaluation of headache without change in character or thunderclap onset. Her headache started this morning she has not taken any medication. Past History - Past Medical History Allergies/Adverse Reactions: Allergies Allergy/AdvReac Type Severity Reaction Status Date / Time shellfish derived Allergy Severe Hives Verified 09/01/19 17:26 No Known Drug Allergies Allergy Verified 09/01/19 17:26 Home Medications: Ambulatory Orders Levothyroxine Sodium [Levoxyl] 100 mcg PO DAILY 11/19/18 Cholecalciferol (Vitamin D3) [Vitamin D3] 1,000 unit PO DAILY 07/02/19 Iron 18 mg PO DAILY 07/02/19 Oxycodone HCl/Acetaminophen [Percocet 5-325 mg Tablet] 1 tab PO Q4H #20 tablet MDD 20 07/09/19 Anemia: Yes (h/o) Asthma: No Cancer: Yes (thyroid) Cardiac Disorders: No CVA: No COPD: No CHF: No Dementia: No Diabetes: No GI Disorders: No Disorders: No HTN: No Hypercholesterolemia: No Liver Disease: No Seizures: No Thyroid Disease: Yes - Reproductive History (#): 4 Para: 3 - Immunization History Immunization Up to Date: Yes - Psycho Social/Smoking Cessation Hx Smoking Status: No Smoking History: Never smoked Have you smoked in the past 12 months: No Number of Cigarettes Smoked Daily: 0 'Breaking Loose' booklet given: 12/17/13 Hx Alcohol Use: Yes (occas) Drug/Substance Use Hx: No Substance Use Type: Alcohol Hx Substance Use Treatment: No Review of Systems - Review of Systems Neurological: Yes: Headache *Physical Exam - Vital Signs Last Vital Signs Temp Pulse Resp BP Pulse Ox 98 F 90 18 128/69 98 09/01/19 17:23 09/01/19 17:23 09/01/19 17:23 09/01/19 17:23 09/01/19 17:23 - Physical Exam Comments: 09/01/19 18:09 GENERAL: The patient is awake, alert, and fully oriented, in no acute distress. HEAD: Normal with no signs of trauma. EYES: sclera anicteric, conjunctiva clear. ENT: Ears normal NECK: Normal range of motion LUNGS: Breath sounds equal, clear to auscultation bilaterally. No wheezes, and no crackles. HEART: S1 and S2 without murmur, rub or gallop. ABDOMEN: Soft, nontender, normoactive bowel sounds. No guarding, no rebound. No masses. EXTREMITIES: Normal range of motion, no edema. No clubbing or cyanosis. No cords, erythema, or tenderness. NEUROLOGICAL: Cranial nerves II through XII grossly intact. Normal speech, normal gait. PSYCH: Normal mood, normal affect. SKIN: Warm, Dry, normal turgor, no rashes or lesions noted. Medical Decision Making - Medical Decision Making 09/01/19 18:09 Typical migraine for this 33-year-old female without change in intensity or character will implement IV medications and await results. 09/01/19 19:03 Headache relieved after medications patient will follow-up with her neurologist Discharge - Discharge Information Problems reviewed: Yes Clinical Impression/Diagnosis: Migraine Headache Qualifiers: Headache type: unspecified Headache chronicity pattern: acute headache Intractability: not intractable Qualified Code(s): R51 - Headache Condition: Improved Disposition: HOME - Admission No - Follow up/Referral - Patient Discharge Instructions Additional Instructions: Return to the emergency room for worsening symptoms continue your regular medications tomorrow and without fail please follow-up with neurology in 1 to 2 days for further evaluation and treatment options. Follow-up with your regular neurologist. - Post Discharge Activity
[2019-09-01] MEDS ORDERED: ACETAMINOPHEN INJECTION 100 ML IVPB ONE (18:16)
[2019-09-01] MEDS ORDERED: METOCLOPRAMIDE HCL INJECTION 10 MG/2 ML VIAL ONE (18:16)
[2019-09-01] MEDS ORDERED: KETOROLAC TROMETHAMINE 30 MG/1 ML VIAL ONE (18:17)
== END 2019-09-01 19:39 | disposition home or self-care (01) ==
LOC: JERFT 17:20
PROC: 3E033NZ Introduction of Analgesics, Hypnotics, Sedatives into Peripheral Vein, Percutaneous Approach (ICD-10-PCS; principal; 2019-09-01)
PROC: 3E0333Z Introduction of Anti-inflammatory into Peripheral Vein, Percutaneous Approach (ICD-10-PCS; 2019-09-01)
PROC: 3E033GC Introduction of Other Therapeutic Substance into Peripheral Vein, Percutaneous Approach (ICD-10-PCS; 2019-09-01)
PROC: 3E033GC Introduction of Other Therapeutic Substance into Peripheral Vein, Percutaneous Approach (ICD-10-PCS; 2019-09-01)
DX: G43.909 Migraine, unspecified, not intractable, without status migrainosus (principal); Z91.013 Allergy to seafood
CPT/HCPCS: 96374; 96375; 99281-25; J0131

== ENCOUNTER 2019-11-18 19:51 | Emergency (ER) | payer OTHER ==
[2019-11-18 20:38] VITALS: BP 114/71; PULSE 87; TEMP 98.2; BMI 24.2
--- NOTE | 2019-11-18 21:04 | PDOC ---
History of Present Illness - General Chief Complaint: Cold Symptoms Stated Complaint: FLU LIKE SYMPTOMS Time Seen by Provider: 11/18/19 20:59 - History of Present Illness Initial Comments: 11/18/19 21:02 33-year-old female with a past medical history of thyroid cancer presents for evaluation of 3 days of flulike symptoms Past History - Past Medical History Allergies/Adverse Reactions: Allergies Allergy/AdvReac Type Severity Reaction Status Date / Time shellfish derived Allergy Severe Hives Verified 09/01/19 17:26 No Known Drug Allergies Allergy Verified 09/01/19 17:26 Home Medications: Ambulatory Orders Levothyroxine Sodium [Levoxyl] 100 mcg PO DAILY 11/19/18 Cholecalciferol (Vitamin D3) [Vitamin D3] 1,000 unit PO DAILY 07/02/19 Iron 18 mg PO DAILY 07/02/19 Oxycodone HCl/Acetaminophen [Percocet 5-325 mg Tablet] 1 tab PO Q4H #20 tablet MDD 20 07/09/19 Oseltamivir Phosphate [Tamiflu] 75 mg PO BID #10 capsule 11/18/19 Anemia: Yes (h/o) Asthma: No Cancer: Yes (thyroid) Cardiac Disorders: No CVA: No COPD: No CHF: No Dementia: No Diabetes: No GI Disorders: No Disorders: No HTN: No Hypercholesterolemia: No Liver Disease: No Seizures: No Thyroid Disease: Yes - Reproductive History (#): 4 Para: 3 - Immunization History Immunization Up to Date: Yes - Psycho Social/Smoking Cessation Hx Smoking Status: No Smoking History: Never smoked Have you smoked in the past 12 months: No Number of Cigarettes Smoked Daily: 0 'Breaking Loose' booklet given: 12/17/13 Hx Alcohol Use: Yes (socially) Drug/Substance Use Hx: No Substance Use Type: Alcohol Hx Substance Use Treatment: No Review of Systems - Review of Systems Constitutional: Yes: Fever HEENTM: Yes: Nose Congestion Respiratory: Yes: Cough *Physical Exam - Vital Signs Last Vital Signs Temp Pulse Resp BP Pulse Ox 98.2 F 87 20 114/71 97 11/18/19 20:36 11/18/19 20:36 11/18/19 20:36 11/18/19 20:36 11/18/19 20:36 - Physical Exam 11/18/19 21:02 GENERAL: The patient is awake, alert, and fully oriented, in no acute distress. HEAD: Normal with no signs of trauma. EYES: sclera anicteric, conjunctiva clear. ENT: Ears normal tympanic membranes normal oropharynx clear uvula midline NECK: Normal range of motion LUNGS: Breath sounds equal, clear to auscultation bilaterally. No wheezes, and no crackles. HEART: S1 and S2 without murmur, rub or gallop. ABDOMEN: Soft, nontender, normoactive bowel sounds. No guarding, no rebound. No masses. EXTREMITIES: Normal range of motion, no edema. No clubbing or cyanosis. No cords, erythema, or tenderness. NEUROLOGICAL: Cranial nerves II through XII grossly intact. Normal speech, normal gait. PSYCH: Normal mood, normal affect. SKIN: Warm, Dry, normal turgor, no rashes or lesions noted. Medical Decision Making - Medical Decision Making 11/18/19 21:03 We will treat based on sick contacts at home positive flu Discharge - Discharge Information Problems reviewed: Yes Clinical Impression/Diagnosis: Influenza Condition: Stable Disposition: HOME - Admission No - Follow up/Referral Referrals: Ana Harris MD [Staff Physician] - - Patient Discharge Instructions Additional Instructions: Please start the Tamiflu and take the medication as directed. Tylenol and Motrin for any fevers and body aches. Return to the emergency room for worsening symptoms. And without fail follow-up with your primary care physician in 1 to 2 days for further evaluation and treatment options. - Post Discharge Activity
== END 2019-11-18 21:20 | disposition home or self-care (01) ==
LOC: JERFT 19:51
DX: J11.1 Influenza due to unidentified influenza virus with other respiratory manifestations (principal); Z85.850 Personal history of malignant neoplasm of thyroid; Z91.013 Allergy to seafood
CPT/HCPCS: 99281-25

== ENCOUNTER 2021-06-26 23:46 | Emergency (ER) | payer OTHER ==
[2021-06-27 00:46] VITALS: BP 110/71; PULSE 72; TEMP 98.3; BMI 25.8
[2021-06-27] MEDS ORDERED: LIDOCAINE 5% TOPICAL PATCH TP ONE (02:06)
[2021-06-27] MEDS ORDERED: IBUPROFEN 600 MG TABLET (FP) PO ONE ×2 (02:06→02:14)
[2021-06-27] MEDS ORDERED: LIDOCAINE 5% TOPICAL PATCH ONE (02:14)
[2021-06-27] MEDS ORDERED: KETOROLAC TROMETHAMINE 30 MG/1 ML VIAL IM ONE (02:15)
[2021-06-27] MEDS ORDERED: KETOROLAC TROMETHAMINE 30 MG/1 ML VIAL ONE (02:34)
[2021-06-27] MEDS ORDERED: LIDOCAINE PATCH REMOVAL MC SCH (22:00)
== END 2021-06-27 02:44 | disposition home or self-care (01) ==
LOC: JER 23:46
PROC: 3E023GC Introduction of Other Therapeutic Substance into Muscle, Percutaneous Approach (ICD-10-PCS; principal; 2021-06-26)
DX: M54.6 Pain in thoracic spine (principal)
CPT/HCPCS: 99284-25

== ENCOUNTER 2021-06-30 22:30 | Emergency (ER) | payer OTHER ==
[2021-06-30 22:37] VITALS: BP 110/74; PULSE 79; TEMP 97; BMI 25.8
[2021-06-30] MEDS ORDERED: LIDOCAINE 5% TOPICAL PATCH TP ONE (23:21)
[2021-06-30] MEDS ORDERED: KETOROLAC TROMETHAMINE 30 MG/1 ML VIAL IM ONE (23:21)
[2021-06-30] MEDS ORDERED: LIDOCAINE 5% TOPICAL PATCH ONE (23:28)
[2021-06-30] MEDS ORDERED: KETOROLAC TROMETHAMINE 30 MG/1 ML VIAL ONE (23:29)
[2021-07-01] MEDS ORDERED: LIDOCAINE PATCH REMOVAL MC ONE (12:00)
== END 2021-07-01 00:40 | disposition home or self-care (01) ==
LOC: JER 22:30
PROC: 3E0233Z Introduction of Anti-inflammatory into Muscle, Percutaneous Approach (ICD-10-PCS; principal; 2021-06-30)
DX: M54.9 Dorsalgia, unspecified (principal)
CPT/HCPCS: 99283-25

== ENCOUNTER 2021-08-26 14:39 | Emergency (ER) | payer OTHER ==
[2021-08-26 14:55] VITALS: BP 113/72; PULSE 76; TEMP 98; BMI 24.2
== END 2021-08-26 16:03 | disposition home or self-care (01) ==
LOC: JERFT 14:39 → JER 14:39 → JERFT 16:03
DX: H53.8 Other visual disturbances (principal)
CPT/HCPCS: 99283-25

== ENCOUNTER 2023-01-30 17:53 | Emergency (ER) | payer OTHER ==
[2023-01-30 18:46] VITALS: BP 114/78; PULSE 77; RESP 16; TEMP 98.1; BMI 22.6
[2023-01-30] MEDS ORDERED: KETOROLAC TROMETHAMINE 30 MG/1 ML VIAL IM ONE (19:16)
[2023-01-30] MEDS ORDERED: diazePAM 5 MG TABLET PO ONE (19:16)
[2023-01-30] MEDS ORDERED: LIDOCAINE 5% TOPICAL PATCH TP ONE (19:16)
[2023-01-30] MEDS ORDERED: ACETAMINOPHEN 325 MG TABLET (FP) PO ONE (19:16)
[2023-01-30] MEDS ORDERED: ACETAMINOPHEN 325 MG TABLET (FP) ONE (19:18)
[2023-01-30] MEDS ORDERED: diazePAM 5 MG TABLET ONE (19:18)
[2023-01-30] MEDS ORDERED: LIDOCAINE 5% TOPICAL PATCH ONE (19:18)
[2023-01-30] MEDS ORDERED: KETOROLAC TROMETHAMINE 30 MG/1 ML VIAL ONE (19:18)
[2023-01-30] MEDS ORDERED: LIDOCAINE PATCH REMOVAL MC SCH (22:00)
== END 2023-01-30 19:54 | disposition home or self-care (01) ==
LOC: JERFT 17:53
PROC: 3E0233Z Introduction of Anti-inflammatory into Muscle, Percutaneous Approach (ICD-10-PCS; principal; 2023-01-30)
DX: M54.50 Low back pain, unspecified (principal)
CPT/HCPCS: 99284-25

== ENCOUNTER 2023-07-02 22:20 | Emergency (ER) | payer OTHER ==
[2023-07-02 22:42] VITALS: BP 103/67; PULSE 79; RESP 20; TEMP 97.9; BMI 23.3
[2023-07-03] MEDS ORDERED: KETOROLAC TROMETHAMINE 15 MG/ML VIAL IM ONE (00:01)
[2023-07-03] MEDS ORDERED: KETOROLAC TROMETHAMINE 15 MG/ML VIAL IVPUSH ONE (00:15)
[2023-07-03] MEDS ORDERED: KETOROLAC TROMETHAMINE 15 MG/ML VIAL ONE (01:24)
== END 2023-07-03 01:59 | disposition home or self-care (01) ==
LOC: JER 22:20
DX: R07.89 Other chest pain (principal); R05.9 Cough, unspecified
CPT/HCPCS: 71046-TC-FY; 93005; 93010; 99284-25

== ENCOUNTER 2024-03-05 21:52 | Emergency (ER) | payer OTHER ==
[2024-03-05 22:01] VITALS: BP 121/79; PULSE 86; RESP 18; TEMP 98.5; BMI 27.2
[2024-03-05] MEDS ORDERED: diphenhydrAMINE HCL 25 MG CAPSULE (FP) PO ONE (22:24)
[2024-03-05] MEDS ORDERED: FAMOTIDINE 20 MG TABLET ONE (22:24)
[2024-03-05] MEDS ORDERED: DEXAMETHASONE SOD PHOSPHATE 10 MG/1 ML VIAL ONE (22:25)
[2024-03-05] MEDS: DEXAMETHASONE LIQUID 0.5 MG/5 ML PO ONE (22:29)
[2024-03-05] MEDS: diphenhydrAMINE HCL 25 MG CAPSULE (FP) PO ONE (22:29)
[2024-03-05] MEDS: FAMOTIDINE 20 MG TABLET PO ONE (22:30)
== END 2024-03-06 00:56 | disposition home or self-care (01) ==
LOC: JER 21:52
DX: L50.9 Urticaria, unspecified (principal)
CPT/HCPCS: 99283-25

== ENCOUNTER 2024-04-01 21:31 | Emergency (ER) | payer OTHER ==
[2024-04-01 21:38] VITALS: TEMP 98.1; BMI 24.2
[2024-04-01] MEDS ORDERED: METOCLOPRAMIDE HCL INJECTION 10 MG/2 ML VIAL ONE (23:17)
[2024-04-01] MEDS ORDERED: KETOROLAC TROMETHAMINE 30 MG/1 ML VIAL ONE (23:17)
[2024-04-01] MEDS: SODIUM CHLORIDE 1,000 ML IV ONE (23:34)
[2024-04-01] MEDS: KETOROLAC TROMETHAMINE 30 MG/1 ML VIAL IVPUSH ONE (23:35)
[2024-04-01] MEDS: METOCLOPRAMIDE HCL INJECTION 10 MG/2 ML VIAL IVPUSH STA (23:35)
[2024-04-02 00:36] VITALS: BP 103/68; PULSE 62; RESP 14
== END 2024-04-02 00:36 | disposition home or self-care (01) ==
LOC: JERFT 21:31 → JER 21:31
PROC: 3E0333Z Introduction of Anti-inflammatory into Peripheral Vein, Percutaneous Approach (ICD-10-PCS; principal; 2024-04-01)
PROC: 3E033GC Introduction of Other Therapeutic Substance into Peripheral Vein, Percutaneous Approach (ICD-10-PCS; 2024-04-01)
PROC: 3E0337Z Introduction of Electrolytic and Water Balance Substance into Peripheral Vein, Percutaneous Approach (ICD-10-PCS; 2024-04-01)
DX: R51.9 Headache, unspecified (principal); R42 Dizziness and giddiness; R11.2 Nausea with vomiting, unspecified; H53.9 Unspecified visual disturbance
CPT/HCPCS: 99284-25

== ENCOUNTER 2025-01-09 15:23 | Emergency (ER) | payer OTHER ==
[2025-01-09 15:37] VITALS: BP 112/66; PULSE 81; RESP 20; TEMP 98.6; BMI 24.2
[2025-01-09] MEDS ORDERED: LORATADINE 10 MG TABLET ONE (16:03)
[2025-01-09] MEDS ORDERED: FAMOTIDINE 20 MG TABLET ONE (16:04)
[2025-01-09] MEDS: FAMOTIDINE 20 MG TABLET PO ONE (16:06)
[2025-01-09] MEDS: LORATADINE 10 MG TABLET PO ONE (16:06)
[2025-01-09] MEDS ORDERED: DEXAMETHASONE SOD PHOSPHATE 10 MG/1 ML VIAL ONE (17:26)
[2025-01-09] MEDS: DEXAMETHASONE SOD PHOSPHATE 10 MG/1 ML VIAL IM ONE (17:30)
== END 2025-01-09 18:11 | disposition home or self-care (01) ==
LOC: JER 15:23
PROC: 3E023GC Introduction of Other Therapeutic Substance into Muscle, Percutaneous Approach (ICD-10-PCS; principal; 2025-01-09)
DX: L50.9 Urticaria, unspecified (principal)
CPT/HCPCS: 96372; 99284-25; J1100